=== PATIENT | female | born 1960 | race Caucasian/White ===

== ENCOUNTER 2016-04-21 10:27 | Day surgery (SDC) | payer BC ==
[~2016-04-21 10:27] MED LIST: RINGERS SOLUTION,LACTATED 1,000 ML IV PRN
[2016-04-21 10:53] LABS: Hematocrit 41.9 % (37.0-47.0); Hemoglobin 14.2 gm/dL (12.5-16.0); Mean Cell Volume 93.5 fl (78-100); Mean Corpuscular Hemoglobin 31.7 pg (27-31); Mean Corpuscular Hgb Conc 33.9 g/dl (32-36); Mean Platelet Volume 8.6 fl (6.0-9.5); Neutrophil # 3.8 K/mm3 (1.3-6.0); Neutrophil % 69.4 % (42-75.0); Platelet Count 278 K/mm3 (150-450); Red Blood Count 4.48 M/mm3 (4.2-5.4); Red Cell Distribution Width 12.3 % (11.5-14.0); White Blood Count 5.4 K/mm3 (4.0-10.5)
[2016-04-21] MEDS ORDERED: RINGERS SOLUTION,LACTATED 1,000 ML IV ONE (11:16)
[2016-04-21] MEDS ORDERED: oxyCODONE HCL/ACETAMINOPHEN 1 TAB TABLET PO PRN (13:40)
[2016-04-21] MEDS ORDERED: IBUPROFEN 600 MG TABLET PO PRN (13:41)
[2016-04-21 14:12] VITALS: BP 116/58
--- NOTE | 2016-04-21 14:17 | OR ---
Operative Report - Dictated Report Narrative: Operative Report 04/21/16 Loop Electrical Excisional Procedure Preoperative Diagnosis: LSIL, Cervical Stenosis, Inadequate Colposcopy Postoperative Diagnosis: LSIL, Cervical Stenosis, Inadequate Colposcopy Procedure: Loop Electrical Excisional Procedure Surgeon: Maddi Barajas M.D. Anesthesia: Shaquille Shen [employer], IV sedation Findings: 20 mm x 7 mm loop Fluids: 300 ml EBL: Minimal Drains: None Pathology: LEEP specimen Complications: None Condition: Stable Procedure: The patient was taken to the operating room with IV fluids running. She was placed in dorsal lithotomy position. She was prepped and draped in the normal sterile fashion. A coated bivalve speculum was placed into the vagina. The cervix was visualized with the findings noted above. LEEP was performed with 20 m x 7 mm loop. The entire area was cauterized with rollerball Bovie cautery. The area was hemostatic. The patient tolerated the procedure well. Sponge counts were correct x 2. She was taken to ambulatory in stable condition.
== END 2016-04-21 10:28 | disposition home or self-care (01) ==
LOC: AMB 10:27
PROVIDERS: ATTEND Obstetrics & Gynecology
PROC: 0UBC7ZX Excision of Cervix, Via Natural or Artificial Opening, Diagnostic (ICD-10-PCS; principal; 2016-04-21 12:00)
DX: N87.0 Mild cervical dysplasia (principal); K21.9 Gastro-esophageal reflux disease without esophagitis; M85.80 Other specified disorders of bone density and structure, unspecified site; Z68.27 Body mass index [BMI] 27.0-27.9, adult